=== PATIENT | female | born 1965 | race African-American/Black ===

== ENCOUNTER 2017-04-15 04:04 | Emergency (ER) | payer MEDICAID, OTHER ==
[~2017-04-15] VITALS: Ht 160 cm; Wt 76.0 kg
[2017-04-15] MEDS ORDERED: ONDANSETRON HCL 4MG/2ML VIAL IV STA (04:28)
[2017-04-15] MEDS ORDERED: SODIUM CHLORIDE 0.9% 1,000 ML IV ONE (04:28)
[2017-04-15] MEDS ORDERED: KETOROLAC 30MG/ML VIAL IV STA (04:28)
[2017-04-15] MEDS ORDERED: PANTOPRAZOLE SODIUM 40 MG/VIAL IV ONE (04:30)
[2017-04-15 05:46] LABS: BASOPHILS % 1.2 % (0.0-2.0); EOSINOPHILS % 1.8 % (0.0-5.0); HEMATOCRIT. 40.7 % (36.0-48.0); HEMOGLOBIN. 13.7 g/dL (12.0-16.0); LYMPHOCYTES % 19.4 % (20.0-50.0); MEAN CORPUSCULAR HEMOGLOBIN 32.1 pg (28.0-32.0); MEAN CORPUSCULAR VOLUME 95.6 fL (81.0-99.0); MEAN PLATELET VOLUME 11.1 fl (7.4-10.4); MONOCYTES % 6.3 % (2.0-8.0); NEUTROPHILS % 71.3 % (40.0-76.0); PLATELET 182 x1000/uL (130-400); RED BLOOD CELL COUNT 4.25 mill/uL (4.2-5.4); RED CELL DISTRIBUTION WIDTH 14.5 % (11.6-14.6)
[2017-04-15 05:51] LABS: INR 1.2; PROTHROMBIN TIME 12.2 sec (9.4-11.6)
[2017-04-15 05:55] LABS: CARBON DIOXIDE 30 mEq/L (21-32); CHLORIDE 102 mEq/L (98-107)
[2017-04-15] MEDS ORDERED: POTASSIUM CHLORIDE 20MEQ TABLET SR PO ONE (06:00)
[2017-04-15 07:08] LABS: CLARITY URINE CLEAR (CLEAR); COLOR URINE YELLOW (YELLOW); GLUCOSE URINE NEGATIVE (NEGATIVE); KETONES URINE TRACE (NEGATIVE); LEUKOCYTE ESTERASE URINE NEGATIVE (NEGATIVE); NITRITE URINE NEGATIVE (NEGATIVE); OCCULT BLOOD URINE TRACE (NEGATIVE); PROTEIN URINE 2+ (NEGATIVE); SPECIFIC GRAVITY URINE 1.017 (1.005-1.030); UROBILINOGEN URINE 0.2 E.U./dL (0.2-1.0)
[2017-04-15 11:37] VITALS: BP 158/88
== END 2017-04-15 11:53 | disposition home or self-care (01) ==
LOC: ER 04:05
DX: R11.2 Nausea with vomiting, unspecified (principal); R10.33 Periumbilical pain; I10 Essential (primary) hypertension
CPT/HCPCS: 36415; 80053; 81001; 85025; 85610; 87086; 96361; 96374; 96375; 99284; C9113; J1885; J2405; J7030; Z7610

== ENCOUNTER 2018-06-04 21:57 | Emergency (ER) | payer OTHER ==
[~2018-06-04] VITALS: Ht 162.6 cm; Wt 76.5 kg
[2018-06-04] MEDS ORDERED: KETOROLAC 30MG/ML VIAL IV STA (23:07)
[2018-06-04] MEDS ORDERED: LABETALOL HCL 20MG/4ML CARPUJECT IV ONE (23:15)
[2018-06-04 23:17] LABS: BASOPHILS % 0.4 % (0.0-2.0); EOSINOPHILS % 5.1 % (0.0-5.0); HEMOGLOBIN. 12.8 g/dL (12.0-16.0); MEAN CORPUSCULAR HEMOGLOBIN 32.2 pg (28.0-32.0); MEAN CORPUSCULAR VOLUME 95.9 fL (81.0-99.0); MEAN PLATELET VOLUME 10.7 fl (7.4-10.4); MONOCYTES % 10.9 % (2.0-8.0); NEUTROPHILS % 41.6 % (40.0-76.0); PLATELET 192 x1000/uL (130-400); RED BLOOD CELL COUNT 3.97 mill/uL (4.2-5.4)
[2018-06-04 23:20] LABS: CHLORIDE 102 mEq/L (98-107)
[2018-06-04 23:50] LABS: CLARITY URINE CLEAR (CLEAR); COLOR URINE YELLOW (YELLOW); KETONES URINE NEGATIVE (NEGATIVE); LEUKOCYTE ESTERASE URINE NEGATIVE (NEGATIVE); NITRITE URINE NEGATIVE (NEGATIVE); OCCULT BLOOD URINE NEGATIVE (NEGATIVE); PH URINE 7.5 (4.5-8.0); PROTEIN URINE NEGATIVE (NEGATIVE); SPECIFIC GRAVITY URINE 1.014 (1.005-1.030); UROBILINOGEN URINE 0.2 E.U./dL (0.2-1.0)
[2018-06-05 04:27] VITALS: BP 157/87
== END 2018-06-05 04:35 | disposition home or self-care (01) ==
LOC: ER 21:57 → CANBEDREQ 06-05 04:52
DX: I16.0 Hypertensive urgency (principal); R53.1 Weakness; I10 Essential (primary) hypertension
CPT/HCPCS: 36415; 71045; 80053; 81003; 83690; 83880; 84484; 85025; 93005; 96374; 96375; 99284; J1885; J3490

== ENCOUNTER 2022-04-24 02:28 | Emergency (ER) | payer OTHER ==
[~2022-04-24] VITALS: Ht 162.6 cm; Wt 86.0 kg
[2022-04-24] MEDS ORDERED: FAMOTIDINE 20MG/2ML VIAL IV STA (02:48)
[2022-04-24] MEDS ORDERED: SODIUM CHLORIDE 0.9% 1,000 ML IV ONE (03:00)
[2022-04-24] MEDS ORDERED: LOPERAMIDE HCL 2MG CAPSULE PO ONE (03:00)
[2022-04-24 03:11] LABS: BASOPHILS % 0.2 % (0.0-2.0); EOSINOPHILS % 1.2 % (0.0-5.0); HEMATOCRIT. 41.7 % (36.0-48.0); LYMPHOCYTES % 7.3 % (20.0-50.0); MEAN CORPUSCULAR HEMOGLOBIN 32.3 pg (28.0-32.0); MEAN CORPUSCULAR VOLUME 96.6 fL (81.0-99.0); MEAN PLATELET VOLUME 10.2 fl (7.4-10.4); MONOCYTES % 5.3 % (2.0-8.0); PLATELET 216 x1000/uL (130-400); RED BLOOD CELL COUNT 4.32 mill/uL (4.2-5.4); RED CELL DISTRIBUTION WIDTH 14.7 % (11.6-14.6)
[2022-04-24 03:18] LABS: CHLORIDE 101 mEq/L (98-107)
[2022-04-24] MEDS ORDERED: IMOD MT (05:21)
[2022-04-24] MEDS ORDERED: ONDA4TAB50 MT (05:21)
[2022-04-24 06:44] VITALS: BP 168/88
== END 2022-04-24 06:46 | disposition home or self-care (01) ==
LOC: ER 02:53
DX: R11.2 Nausea with vomiting, unspecified (principal); R19.7 Diarrhea, unspecified; I10 Essential (primary) hypertension
CPT/HCPCS: 36415; 71045; 80053; 83605; 83690; 84484; 85025; 93005; 96374; 99285; J3490

== ENCOUNTER 2024-05-14 19:04 | Emergency (ER) | payer SELFPAY ==
[~2024-05-14] VITALS: Ht 170.2 cm; Wt 91.0 kg
[~2024-05-14 19:04] MED LIST: IMOD MT; ONDA4TAB50 MT
[2024-05-14 19:06] VITALS: O2SAT 96
[2024-05-14] MEDS: ONDANSETRON HCL 4MG/2ML INJ IV STA (19:12)
[2024-05-14] MEDS: SODIUM CHLORIDE 0.9% 1,000 ML IV ONE (19:15)
[2024-05-14 20:10] LABS: BASOPHILS % 0.2 % (0.0-2.0); EOSINOPHILS % 4.4 % (0.0-5.0); HEMATOCRIT. 42.7 % (36.0-48.0); HEMOGLOBIN. 14.1 g/dL (12.0-16.0); LYMPHOCYTES % 16.5 % (20.0-50.0); MEAN CORPUSCULAR HEMOGLOBIN 32.6 pg (28.0-32.0); MEAN CORPUSCULAR VOLUME 98.7 fL (81.0-99.0); MEAN PLATELET VOLUME 11.2 fl (7.4-10.4); MONOCYTES % 4.6 % (2.0-8.0); NEUTROPHILS % 74.3 % (40.0-76.0); PLATELET 202 x1000/uL (130-400); RED BLOOD CELL COUNT 4.32 mill/uL (4.2-5.4); RED CELL DISTRIBUTION WIDTH 14.3 % (11.6-14.6); WHITE BLOOD COUNT 10.2 x1000/uL (4.5-11.0)
[2024-05-14 20:18] LABS: CHLORIDE 105 mEq/L (98-107); POTASSIUM 3.7 mEq/L (3.5-5.1); SODIUM 139 mEq/L (136-145)
[2024-05-14 20:19] LABS: CALCIUM 9.5 mg/dL (8.7-10.4); CARBON DIOXIDE 28 mEq/L (21-32)
[2024-05-14 20:20] LABS: PROTHROMBIN TIME 10.9 sec (9.6-11.0)
[2024-05-14 20:24] LABS: GLUCOSE 132 mg/dL (70-105); TROPONIN I HIGH SENSITIVITY 7 ng/L (3.0-34); UREA NITROGEN BLOOD 13 mg/dL (9-23)
[2024-05-14 20:26] VITALS: BP 188/100; PULSE 86; RESP 18; TEMP 36.94740; O2SAT 96
[2024-05-14 20:26] LABS: ALANINE AMINOTRANSFERASE 20 IU/L (10-49); ALBUMIN 4.7 g/dL (3.2-4.8); ASPARTATE AMINOTRANSFERASE 20 IU/L (<34); BILIRUBIN DIRECT 0.1 mg/dL (<=3.0); BILIRUBIN TOTAL 0.4 mg/dL (0.1-1.0); PROTEIN TOTAL 8.5 g/dL (6.0-8.3)
[2024-05-14] MEDS ORDERED: ONDA4TAB50 MT (22:32)
[2024-05-14] MEDS ORDERED: IMOD MT (22:32)
== END 2024-05-14 23:32 | disposition home or self-care (01) ==
LOC: ER 19:04
DX: R55 Syncope and collapse (principal); A08.4 Viral intestinal infection, unspecified; I10 Essential (primary) hypertension
CPT/HCPCS: 99285; 96374; 70450; 96361; 71045; 80076; 80048; 83880; 83690; 85025; 85610; 84484; 36415; 93005; J2405; J7030

== ENCOUNTER 2024-07-02 18:42 | Emergency (ER) | payer OTHER ==
[~2024-07-02] VITALS: Ht 167.6 cm; Wt 81.0 kg
[2024-07-02 18:45] VITALS: O2SAT 99
[2024-07-02 19:30] LABS: BASOPHILS % 0.4 % (0.0-2.0); EOSINOPHILS % 6.5 % (0.0-5.0); HEMATOCRIT. 39.1 % (36.0-48.0); HEMOGLOBIN. 12.9 g/dL (12.0-16.0); LYMPHOCYTES % 41.1 % (20.0-50.0); MEAN CORPUSCULAR HEMOGLOBIN 32.5 pg (28.0-32.0); MEAN CORPUSCULAR HGB CONC 33.1 g/dL (31.0-37.0); MEAN CORPUSCULAR VOLUME 98.3 fL (81.0-99.0); MONOCYTES % 9.2 % (2.0-8.0); NEUTROPHILS % 42.8 % (40.0-76.0); PLATELET 206 x1000/uL (130-400); RED BLOOD CELL COUNT 3.97 mill/uL (4.2-5.4); RED CELL DISTRIBUTION WIDTH 14.2 % (11.6-14.6); WHITE BLOOD COUNT 9.4 x1000/uL (4.5-11.0)
[2024-07-02 19:40] VITALS: TEMP 37.16964; O2SAT 99
[2024-07-02 19:40] LABS: CHLORIDE 106 mEq/L (98-107); POTASSIUM 3.5 mEq/L (3.5-5.1); SODIUM 142 mEq/L (136-145)
[2024-07-02 19:41] LABS: CALCIUM 9.3 mg/dL (8.7-10.4); CARBON DIOXIDE 27 mEq/L (21-32)
[2024-07-02 19:46] LABS: CREATININE 0.9 mg/dL (0.6-1.0); GLUCOSE 157 mg/dL (70-105); UREA NITROGEN BLOOD 10 mg/dL (9-23)
[2024-07-02 19:48] LABS: TROPONIN I HIGH SENSITIVITY 11 ng/L (3.0-34)
[2024-07-02] MEDS: LOSARTAN 50 MG TABLET PO ONE ×2 (19:54)
[2024-07-02] MEDS ORDERED: LOSA100T33 MT (20:46)
[2024-07-02] MEDS ORDERED: BENZ100C86 MT (21:05)
[2024-07-02 21:14] VITALS: TEMP 98.9
[2024-07-02] MEDS: ACETAMINOPHEN 325MG TABLET PO ONE (21:14)
[2024-07-02 21:15] VITALS: BP 199/91; PULSE 84; RESP 16
[2024-07-02] MEDS: KETOROLAC 15MG/ML VIAL IM ONE (21:15)
== END 2024-07-02 21:24 | disposition home or self-care (01) ==
LOC: ER 18:42 → EDBEDREQ 19:13 → ER 21:24
DX: I10 Essential (primary) hypertension (principal); M79.605 Pain in left leg; R07.81 Pleurodynia; I16.0 Hypertensive urgency; R51.9 Headache, unspecified; E78.00 Pure hypercholesterolemia, unspecified; Z79.899 Other long term (current) drug therapy
CPT/HCPCS: 80048; 83880; 85025; 84484; 36415; 71045; 70450; 93005; 96372; 99291; J1885; Z7610

== ENCOUNTER 2025-01-26 22:31 | Inpatient (IN) | payer OTHER ==
[~2025-01-26] VITALS: Ht 172.7 cm; Wt 78.9 kg
[~2025-01-26 22:31] MED LIST changes: +BENZ100C86 MT; +LOSA100T33 MT
[2025-01-26 22:32] VITALS: O2SAT 97
[2025-01-26 23:24] LABS: BASOPHILS % 0.7 % (0.0-2.0); EOSINOPHILS % 4.1 % (0.0-5.0); HEMATOCRIT. 37.5 % (36.0-48.0); HEMOGLOBIN. 12.5 g/dL (12.0-16.0); LYMPHOCYTES % 45.5 % (20.0-50.0); MEAN PLATELET VOLUME 11.5 fl (7.4-10.4); MONOCYTES % 9.7 % (2.0-8.0); NEUTROPHILS % 40.0 % (40.0-76.0); PLATELET 185 x1000/uL (130-400); RED BLOOD CELL COUNT 3.87 mill/uL (4.2-5.4); RED CELL DISTRIBUTION WIDTH 14.3 % (11.6-14.6)
[2025-01-26] MEDS: ONDANSETRON HCL 4MG/2ML INJ IV ONE (23:29)
[2025-01-26 23:32] LABS: INR 1.0
[2025-01-26 23:36] LABS: CREATININE 1.0 mg/dL (0.6-1.0); TROPONIN I HIGH SENSITIVITY 9 ng/L (3.0-34); UREA NITROGEN BLOOD 13 mg/dL (9-23)
[2025-01-26 23:37] LABS: ETHANOL BLOOD < 10 mg/dL (<10)
[2025-01-26 23:38] LABS: ASPARTATE AMINOTRANSFERASE 18 IU/L (<34); BILIRUBIN DIRECT < 0.1 mg/dL (<=3.0); BILIRUBIN TOTAL 0.4 mg/dL (0.1-1.0); PROTEIN TOTAL 7.4 g/dL (6.0-8.3)
[2025-01-27] MEDS: ATORVASTATIN CALCIUM 40MG TABLET PO SCH ×2 (02:40→21:36)
[2025-01-27] MEDS: ASPIRIN 325MG EC TABLET PO SCH (02:40)
[2025-01-27 03:05] VITALS: BP 187/76; PULSE 60; RESP 16; TEMP 36.4736
[2025-01-27 04:00] VITALS: BP 155/75; PULSE 53; RESP 16; TEMP 36.6; O2SAT 97
[2025-01-27] MEDS ORDERED: POTASSIUM CHLORIDE 20MEQ TABLET SR PO PRN (07:15)
[2025-01-27] MEDS ORDERED: IPRATROPIUM/ALBUTEROL 0.5-3(2.5)MG/3ML NEB HHN PRN (07:15)
[2025-01-27] MEDS ORDERED: DEXTROSE 50% WATER 50ML SYRINGE IV PRN ×2 (07:15)
[2025-01-27] MEDS ORDERED: ACETAMINOPHEN 325MG TABLET PO PRN ×2 (07:15)
[2025-01-27] MEDS ORDERED: ONDANSETRON HCL 4MG/2ML INJ IV PRN (07:15)
[2025-01-27] MEDS ORDERED: HYDROCODONE/ACETAMINOPHEN 5/325MG TABLET PO PRN (07:15)
[2025-01-27] MEDS ORDERED: CLONIDINE 0.1MG TABLET PO PRN (07:15)
[2025-01-27] MEDS ORDERED: MAGNESIUM/ALUMINUM HYDROXIDE/SIMETHICONE 30ML UDC PO PRN (07:15)
[2025-01-27] MEDS ORDERED: NALOXONE HCL 0.4MG/ML VIAL IV PRN (07:15)
[2025-01-27] MEDS: INSULIN LISPRO 100 UNITS/ML SUBCUT SCH (07:20)
[2025-01-27] MEDS ORDERED: LOSA100T33 MT (07:43)
[2025-01-27 08:00] VITALS: BP 163/75; PULSE 50; RESP 20; TEMP 36.6; O2SAT 97
[2025-01-27] MEDS: AMLODIPINE 10MG TABLET PO SCH (10:32)
[2025-01-27] MEDS: ENOXAPARIN 40MG/0.4ML SYR SUBCUT SCH (10:34)
[2025-01-27 10:36] LABS: TRIGLYCERIDE 88.0 mg/dL (0-150)
[2025-01-27 10:37] LABS: LDL CHOLESTEROL 149.0 mg/dL (5-100)
[2025-01-27] MEDS: BLOOD SUGAR DIAGNOSTIC STRIP TEST SCH (11:50)
[2025-01-27 11:58] LABS: VITAMIN B12 SERUM 723 pg/mL (211-911)
[2025-01-27 12:00] VITALS: BP 156/75; PULSE 58; RESP 19; TEMP 36.7; O2SAT 96
[2025-01-27] MEDS: CLOPIDOGREL 75MG TABLET PO SCH (15:09)
[2025-01-27] MEDS: LOSARTAN 100 MG TABLET PO SCH (15:10)
[2025-01-27 16:00] VITALS: BP 161/70; PULSE 59; RESP 21; TEMP 36.6; O2SAT 97
[2025-01-27 20:00] VITALS: BP 140/70; PULSE 67; RESP 17; TEMP 36.7; O2SAT 97
[2025-01-28] VITALS (22 sets, daily range): BP systolic 124–156; BP diastolic 69–80; PULSE 53–68; RESP 13–18; TEMP 36.4–36.9; O2SAT 97–99
[2025-01-28 04:41] LABS: BASOPHILS % 0.6 % (0.0-2.0); EOSINOPHILS % 5.9 % (0.0-5.0); HEMATOCRIT. 38.8 % (36.0-48.0); HEMOGLOBIN. 13.0 g/dL (12.0-16.0); LYMPHOCYTES % 51.7 % (20.0-50.0); MEAN PLATELET VOLUME 11.4 fl (7.4-10.4); MONOCYTES % 9.9 % (2.0-8.0); NEUTROPHILS % 31.9 % (40.0-76.0); PLATELET 179 x1000/uL (130-400); RED BLOOD CELL COUNT 4.05 mill/uL (4.2-5.4); RED CELL DISTRIBUTION WIDTH 14.4 % (11.6-14.6)
[2025-01-28 04:55] LABS: TROPONIN I HIGH SENSITIVITY 13 ng/L (3.0-34)
[2025-01-28 04:56] LABS: CREATININE 0.9 mg/dL (0.6-1.0)
[2025-01-28 04:57] LABS: LDL CHOLESTEROL 130 mg/dL (5-100); TRIGLYCERIDE 90 mg/dL (0-150); UREA NITROGEN BLOOD 13 mg/dL (9-23)
[2025-01-28 04:58] LABS: ASPARTATE AMINOTRANSFERASE 16 IU/L (<34); BILIRUBIN DIRECT 0.1 mg/dL (<=3.0); PHOSPHORUS 3.4 mg/dL (2.5-4.9); T4 FREE 0.87 ng/dL (0.89-1.76)
[2025-01-28 04:59] LABS: BILIRUBIN TOTAL 0.5 mg/dL (0.1-1.0); PROTEIN TOTAL 7.2 g/dL (6.0-8.3)
[2025-01-28] MEDS ORDERED: HYDRALAZINE 20MG/ML VIAL IV PRN ×2 (05:00→05:15)
[2025-01-28 05:47] LABS: CLARITY URINE CLEAR (CLEAR); COLOR URINE YELLOW (YELLOW); GLUCOSE URINE NEGATIVE (NEGATIVE); KETONES URINE NEGATIVE (NEGATIVE); LEUKOCYTE ESTERASE URINE NEGATIVE (NEGATIVE); NITRITE URINE NEGATIVE (NEGATIVE); OCCULT BLOOD URINE NEGATIVE (NEGATIVE); PH URINE 5.5 (4.5-8.0); PROTEIN URINE NEGATIVE (NEGATIVE); SPECIFIC GRAVITY URINE 1.020 (1.005-1.030); UROBILINOGEN URINE 0.2 E.U./dL (0.2-1.0)
[2025-01-28] MEDS: POTASSIUM CHLORIDE 20MEQ TABLET SR PO SCH (06:13)
[2025-01-28 06:18] LABS: *AMPHETAMINES SCREEN URINE NEGATIVE (NEGATIVE)
[2025-01-28 06:19] LABS: *BARBITURATES SCREEN URINE NEGATIVE (NEGATIVE); *BENZODIAZEPINES SCREEN URINE NEGATIVE (NEGATIVE); *COCAINE SCREEN URINE NEGATIVE (NEGATIVE); CANNABINOID URINE SCREEN NEGATIVE (NEGATIVE); ECSTASY MDMA SCREEN URINE NEGATIVE (NEGATIVE); METHADONE URINE SCREEN NEGATIVE (NEGATIVE); OPIATES URINE SCREEN NEGATIVE (NEGATIVE); PHENCYCLIDINE URINE SCREEN NEGATIVE (NEGATIVE)
[2025-01-28] MEDS ORDERED: POTASSIUM CHLORIDE 20MEQ/PACKET PO NR (09:00)
[2025-01-28 12:57] LABS: CREATININE 0.9 mg/dL (0.6-1.0); UREA NITROGEN BLOOD 13 mg/dL (9-23)
[2025-01-28] MEDS ORDERED: DOPAMINE 400MG/250ML PREMIX 250 ML IV PRN ×2 (13:15→13:30)
[2025-01-29] VITALS (29 sets, daily range): BP systolic 116–151; BP diastolic 64–84; PULSE 54–70; RESP 13–21; TEMP 36.6–37.1; O2SAT 93–100
[2025-01-29 07:31] LABS: BASOPHILS % 0.6 % (0.0-2.0); EOSINOPHILS % 6.0 % (0.0-5.0); HEMATOCRIT. 41.1 % (36.0-48.0); HEMOGLOBIN. 13.7 g/dL (12.0-16.0); LYMPHOCYTES % 48.3 % (20.0-50.0); MEAN PLATELET VOLUME 11.5 fl (7.4-10.4); MONOCYTES % 10.4 % (2.0-8.0); NEUTROPHILS % 34.7 % (40.0-76.0); PLATELET 184 x1000/uL (130-400); RED BLOOD CELL COUNT 4.22 mill/uL (4.2-5.4); RED CELL DISTRIBUTION WIDTH 14.2 % (11.6-14.6)
[2025-01-29 08:02] LABS: CREATININE 0.9 mg/dL (0.6-1.0)
[2025-01-29 08:03] LABS: UREA NITROGEN BLOOD 15 mg/dL (9-23)
[2025-01-29 08:04] LABS: ASPARTATE AMINOTRANSFERASE 19 IU/L (<34); BILIRUBIN DIRECT 0.1 mg/dL (<=3.0)
[2025-01-29 08:05] LABS: BILIRUBIN TOTAL 0.5 mg/dL (0.1-1.0); PHOSPHORUS 3.5 mg/dL (2.5-4.9); PROTEIN TOTAL 7.6 g/dL (6.0-8.3)
[2025-01-30] VITALS (60 sets, daily range): BP systolic 116–152; BP diastolic 64–78; PULSE 53–79; RESP 10–24; TEMP 36.4–37; O2SAT 94–100
[2025-01-30 06:41] LABS: BASOPHILS % 0.5 % (0.0-2.0); EOSINOPHILS % 7.2 % (0.0-5.0); HEMATOCRIT. 39.5 % (36.0-48.0); HEMOGLOBIN. 13.2 g/dL (12.0-16.0); LYMPHOCYTES % 50.0 % (20.0-50.0); MEAN PLATELET VOLUME 11.0 fl (7.4-10.4); MONOCYTES % 8.9 % (2.0-8.0); NEUTROPHILS % 33.4 % (40.0-76.0); PLATELET 191 x1000/uL (130-400); RED BLOOD CELL COUNT 4.05 mill/uL (4.2-5.4); RED CELL DISTRIBUTION WIDTH 14.4 % (11.6-14.6)
[2025-01-30 07:02] LABS: CREATININE 0.9 mg/dL (0.6-1.0)
[2025-01-30 07:03] LABS: UREA NITROGEN BLOOD 18 mg/dL (9-23)
[2025-01-31] VITALS: BP 144/76; PULSE 64; RESP 14; TEMP 36.8; O2SAT 97
[2025-01-31 04:00] VITALS: BP 142/69; PULSE 59; RESP 12; TEMP 36.7; O2SAT 99
[2025-01-31 07:09] LABS: CREATININE 0.9 mg/dL (0.6-1.0)
[2025-01-31 07:10] LABS: UREA NITROGEN BLOOD 16 mg/dL (9-23)
[2025-01-31 07:14] LABS: BASOPHILS % 2.0 % (0.0-2.0); EOSINOPHILS % 4.6 % (0.0-5.0); HEMATOCRIT. 40.1 % (36.0-48.0); HEMOGLOBIN. 13.2 g/dL (12.0-16.0); LYMPHOCYTES % 41.7 % (20.0-50.0); MEAN PLATELET VOLUME 11.3 fl (7.4-10.4); MONOCYTES % 7.5 % (2.0-8.0); NEUTROPHILS % 44.2 % (40.0-76.0); PLATELET 192 x1000/uL (130-400); RED BLOOD CELL COUNT 4.16 mill/uL (4.2-5.4); RED CELL DISTRIBUTION WIDTH 14.4 % (11.6-14.6)
[2025-01-31 08:00] VITALS: BP 141/70; PULSE 66; RESP 17; TEMP 36.8; O2SAT 92
[2025-01-31 12:07] VITALS: BP 124/63; PULSE 66; RESP 18; TEMP 36.7; O2SAT 95
[2025-01-31 16:00] VITALS: BP 136/76; PULSE 64; RESP 12; TEMP 37; O2SAT 100
[2025-01-31] MEDS: ASPIRIN 81MG TABLET PO SCH (18:14)
[2025-01-31 20:00] VITALS: BP 149/80; PULSE 66; RESP 15; TEMP 37; O2SAT 98
[2025-02-01] VITALS: BP 142/71; PULSE 62; RESP 14; TEMP 36.9; O2SAT 98
[2025-02-01 04:00] VITALS: BP 132/67; PULSE 55; RESP 13; TEMP 36.6; O2SAT 100
[2025-02-01 08:00] VITALS: BP 134/66; PULSE 59; RESP 13; TEMP 36.6; O2SAT 100
[2025-02-01 12:00] VITALS: BP 121/66; PULSE 61; RESP 16; TEMP 36.8; O2SAT 96
[2025-02-01 16:00] VITALS: BP 120/68; PULSE 65; RESP 17; TEMP 36.7; O2SAT 98
[2025-02-01 16:32] LABS: BASOPHILS % 0.4 % (0.0-2.0); EOSINOPHILS % 5.7 % (0.0-5.0); HEMATOCRIT. 39.0 % (36.0-48.0); HEMOGLOBIN. 13.0 g/dL (12.0-16.0); LYMPHOCYTES % 36.2 % (20.0-50.0); MEAN PLATELET VOLUME 11.1 fl (7.4-10.4); MONOCYTES % 8.8 % (2.0-8.0); NEUTROPHILS % 48.9 % (40.0-76.0); PLATELET 183 x1000/uL (130-400); RED BLOOD CELL COUNT 4.05 mill/uL (4.2-5.4); RED CELL DISTRIBUTION WIDTH 14.3 % (11.6-14.6)
[2025-02-01 16:47] LABS: CREATININE 0.9 mg/dL (0.6-1.0); UREA NITROGEN BLOOD 14 mg/dL (9-23)
[2025-02-01 20:00] VITALS: BP 127/69; PULSE 66; RESP 17; TEMP 36.7; O2SAT 97
[2025-02-02] VITALS: BP 118/67; PULSE 63; RESP 17; TEMP 36.8; O2SAT 94
[2025-02-02 04:00] VITALS: BP 123/73; PULSE 58; RESP 17; TEMP 36.8; O2SAT 95
[2025-02-02 08:00] VITALS: BP 137/71; PULSE 68; RESP 14; TEMP 37.1; O2SAT 98
[2025-02-02] MEDS: DOCUSATE SODIUM 100MG CAPSULE PO PRN (08:44)
[2025-02-02 12:00] VITALS: BP 129/78; PULSE 66; RESP 16; TEMP 36.7; O2SAT 97
[2025-02-02 16:00] VITALS: BP 123/90; PULSE 68; RESP 15; TEMP 36.7; O2SAT 96
[2025-02-02 20:00] VITALS: BP 117/74; PULSE 74; RESP 19; TEMP 36.9; O2SAT 97
[2025-02-02 22:20] LABS: PHOSPHORUS 3.4 mg/dL (2.5-4.9)
[2025-02-03] VITALS: BP 126/82; PULSE 61; RESP 16; TEMP 36.8; O2SAT 96
[2025-02-03 04:00] VITALS: BP 127/67; PULSE 62; RESP 16; TEMP 36.4; O2SAT 100
[2025-02-03 07:07] LABS: CREATININE 0.8 mg/dL (0.6-1.0); UREA NITROGEN BLOOD 14 mg/dL (9-23)
[2025-02-03 07:09] LABS: ASPARTATE AMINOTRANSFERASE 23 IU/L (<34); BILIRUBIN TOTAL 0.3 mg/dL (0.1-1.0)
[2025-02-03 07:10] LABS: PROTEIN TOTAL 6.9 g/dL (6.0-8.3)
[2025-02-03 08:00] VITALS: BP 147/98; PULSE 67; RESP 17; TEMP 36.8; O2SAT 95
[2025-02-03 12:00] VITALS: BP 133/72; PULSE 60; RESP 16; TEMP 36.2; O2SAT 98
[2025-02-03 13:52] LABS: BASOPHILS % 0.3 % (0.0-2.0); EOSINOPHILS % 6.6 % (0.0-5.0); HEMATOCRIT. 38.4 % (36.0-48.0); HEMOGLOBIN. 12.9 g/dL (12.0-16.0); LYMPHOCYTES % 40.2 % (20.0-50.0); MEAN PLATELET VOLUME 11.3 fl (7.4-10.4); MONOCYTES % 10.3 % (2.0-8.0); NEUTROPHILS % 42.6 % (40.0-76.0); PLATELET 201 x1000/uL (130-400); RED BLOOD CELL COUNT 3.98 mill/uL (4.2-5.4); RED CELL DISTRIBUTION WIDTH 14.1 % (11.6-14.6)
[2025-02-03 16:00] VITALS: BP 114/100; PULSE 66; RESP 18; TEMP 36.2; O2SAT 99
[2025-02-03 20:00] VITALS: BP 129/93; PULSE 64; RESP 17; TEMP 37.1; O2SAT 97
[2025-02-04] VITALS: BP 111/46; PULSE 57; RESP 15; TEMP 36.8; O2SAT 96
[2025-02-04 04:00] VITALS: BP 106/58; PULSE 77; RESP 16; TEMP 36.9; O2SAT 99
[2025-02-04 06:51] LABS: CREATININE 0.8 mg/dL (0.6-1.0); UREA NITROGEN BLOOD 13 mg/dL (9-23)
[2025-02-04 06:53] LABS: ASPARTATE AMINOTRANSFERASE 26 IU/L (<34)
[2025-02-04 06:54] LABS: BILIRUBIN TOTAL 0.4 mg/dL (0.1-1.0); PROTEIN TOTAL 6.8 g/dL (6.0-8.3)
[2025-02-04 07:03] LABS: BASOPHILS % 0.7 % (0.0-2.0); EOSINOPHILS % 8.2 % (0.0-5.0); HEMATOCRIT. 36.6 % (36.0-48.0); HEMOGLOBIN. 12.3 g/dL (12.0-16.0); LYMPHOCYTES % 48.8 % (20.0-50.0); MEAN PLATELET VOLUME 11.0 fl (7.4-10.4); MONOCYTES % 9.1 % (2.0-8.0); NEUTROPHILS % 33.2 % (40.0-76.0); PLATELET 181 x1000/uL (130-400); RED BLOOD CELL COUNT 3.79 mill/uL (4.2-5.4); RED CELL DISTRIBUTION WIDTH 13.8 % (11.6-14.6)
[2025-02-04 08:00] VITALS: BP 142/65; PULSE 65; RESP 19; TEMP 36.8; O2SAT 97
[2025-02-04 12:00] VITALS: BP 129/65; PULSE 73; RESP 19; TEMP 36.9; O2SAT 99
[2025-02-04] MEDS: IOHEXOL-350 100 ML BOTTLE ONE (13:01)
[2025-02-04 15:59] VITALS: BP 128/64; PULSE 73; RESP 15; TEMP 36.8; O2SAT 95
[2025-02-04 20:00] VITALS: BP 123/63; PULSE 73; RESP 22; TEMP 36.7; O2SAT 96
[2025-02-05] VITALS: BP 108/66; PULSE 60; RESP 16; TEMP 36.7; O2SAT 97
[2025-02-05 04:00] VITALS: BP 132/62; PULSE 5; RESP 14; TEMP 37; O2SAT 96
[2025-02-05 08:00] VITALS: BP 123/66; PULSE 57; RESP 10; TEMP 37; O2SAT 98
[2025-02-05 11:51] LABS: BASOPHILS % 1.1 % (0.0-2.0); EOSINOPHILS % 7.2 % (0.0-5.0); HEMATOCRIT. 43.2 % (36.0-48.0); HEMOGLOBIN. 14.7 g/dL (12.0-16.0); LYMPHOCYTES % 41.9 % (20.0-50.0); MEAN PLATELET VOLUME 11.2 fl (7.4-10.4); MONOCYTES % 8.6 % (2.0-8.0); NEUTROPHILS % 41.2 % (40.0-76.0); PLATELET 229 x1000/uL (130-400); RED BLOOD CELL COUNT 4.46 mill/uL (4.2-5.4); RED CELL DISTRIBUTION WIDTH 13.8 % (11.6-14.6)
[2025-02-05 12:00] VITALS: BP 128/70; PULSE 58; RESP 16; TEMP 37.2; O2SAT 96
[2025-02-05 12:12] LABS: CREATININE 0.8 mg/dL (0.6-1.0)
[2025-02-05 12:13] LABS: ASPARTATE AMINOTRANSFERASE 24 IU/L (<34); UREA NITROGEN BLOOD 14 mg/dL (9-23)
[2025-02-05 12:15] LABS: BILIRUBIN TOTAL 0.5 mg/dL (0.1-1.0); PROTEIN TOTAL 8.2 g/dL (6.0-8.3)
[2025-02-05] MEDS ORDERED: BISACODYL 10MG SUPP PR NR (12:30)
[2025-02-05] MEDS: LACTULOSE 20G/30ML UDC PO NR (12:39)
[2025-02-05 16:00] VITALS: BP 139/76; PULSE 76; RESP 12; TEMP 37; O2SAT 96
[2025-02-05 20:00] VITALS: BP 127/59; PULSE 73; RESP 18; TEMP 35.9; O2SAT 98
[2025-02-06] VITALS: BP 121/75; PULSE 64; RESP 16; TEMP 36.4; O2SAT 95
[2025-02-06 04:00] VITALS: BP 118/84; PULSE 64; RESP 15; TEMP 35.9; O2SAT 98
[2025-02-06 07:51] LABS: BASOPHILS % 0.5 % (0.0-2.0); EOSINOPHILS % 7.0 % (0.0-5.0); HEMATOCRIT. 38.9 % (36.0-48.0); HEMOGLOBIN. 13.0 g/dL (12.0-16.0); LYMPHOCYTES % 42.7 % (20.0-50.0); MEAN PLATELET VOLUME 11.2 fl (7.4-10.4); MONOCYTES % 9.7 % (2.0-8.0); NEUTROPHILS % 40.1 % (40.0-76.0); PLATELET 210 x1000/uL (130-400); RED BLOOD CELL COUNT 4.04 mill/uL (4.2-5.4); RED CELL DISTRIBUTION WIDTH 14.1 % (11.6-14.6)
[2025-02-06 07:57] LABS: CREATININE 0.9 mg/dL (0.6-1.0); UREA NITROGEN BLOOD 18 mg/dL (9-23)
[2025-02-06 07:59] LABS: ASPARTATE AMINOTRANSFERASE 22 IU/L (<34); BILIRUBIN TOTAL 0.3 mg/dL (0.1-1.0); PROTEIN TOTAL 7.2 g/dL (6.0-8.3)
[2025-02-06 08:00] VITALS: BP 131/74; PULSE 66; RESP 15; TEMP 36.6; O2SAT 97
[2025-02-06] MEDS ORDERED: ASPI-1160 PO (09:50)
[2025-02-06] MEDS ORDERED: LIP40 PO (09:50)
[2025-02-06] MEDS ORDERED: CLOP-31 PO (09:50)
[2025-02-06] MEDS ORDERED: AMLO10TA80 PO (09:50)
[2025-02-06 12:00] VITALS: BP 124/61; PULSE 63; RESP 16; TEMP 36.8; O2SAT 96
[2025-02-06 16:02] VITALS: BP 124/61; PULSE 63; RESP 16; TEMP 98.2
[2025-02-06 16:52] VITALS: BP 128/65; PULSE 76; RESP 20; TEMP 37.1; O2SAT 96
== END 2025-02-06 18:01 | DRG 65 ==
LOC: ER 22:31 → 3WST 01-27 01:46 → EDBEDREQTM 01-27 02:07 → EDBEDREQ 01-27 02:07 → EDBEDREQDT 01-27 02:07 → ENRESERV 01-27 02:25 → CVICU 01-28 18:25 → 3WST 01-30 23:07
PROVIDERS: ADMIT Family Medicine Adult Medicine; ATTEND Family Medicine Adult Medicine
DX: I63.9 Cerebral infarction, unspecified (principal); G81.94 Hemiplegia, unspecified affecting left nondominant side; I10 Essential (primary) hypertension; R13.10 Dysphagia, unspecified; E78.00 Pure hypercholesterolemia, unspecified; E87.6 Hypokalemia; R47.01 Aphasia; R47.1 Dysarthria and anarthria; M47.819 Spondylosis without myelopathy or radiculopathy, site unspecified; M48.00 Spinal stenosis, site unspecified; Z79.82 Long term (current) use of aspirin; Z79.899 Other long term (current) drug therapy; Z91.148 Patient's other noncompliance with medication regimen for other reason
CPT/HCPCS: 36415; 70496; 70498; 70551; 71045; 73521; 74018; 80048; 80053; 80061; 80076; 80305; 80320; 81003; 82607; 82962; 83036; 83735; 83880; 84100; 84425; 84439; 84443; 84484; 85025; 92610; 93005; 93306; 93970; 97110; 97112; 97116; 97162; 97166; 97168; 97530; 97535; 99285; A4606; J1650; J1815; J2405; Q9967; G0480